=== PATIENT | female | born 1995 | race African-American/Black ===

== ENCOUNTER 2023-12-09 13:06 | Emergency (ER) | payer BC ==
[~2023-12-09] VITALS: Ht 154.9 cm; Wt 81.8 kg
[2023-12-09 13:25] VITALS: TEMP 98.8
[2023-12-09 14:01] VITALS: BP 158/96; PULSE 80
== END 2023-12-09 14:02 | disposition home or self-care (01) ==
LOC: COL.ER 13:06
DX: G57.11 Meralgia paresthetica, right lower limb (principal)